=== PATIENT | female | born 1965 | race Two or more races ===

== ENCOUNTER 2018-09-18 14:20 | Inpatient (IN) | payer OTHER, MEDICAID ==
[~2018-09-18] VITALS: Ht 152.4 cm; Wt 83.0 kg
[2018-09-18] MEDS ORDERED: SODIUM CHLORIDE 0.9% 1,000 ML IV ONE ×2 (14:45→17:00)
[2018-09-18] MEDS ORDERED: ONDANSETRON HCL 4 MG/2 ML VIAL IV ONE ×3 (14:45→19:15)
[2018-09-18] MEDS ORDERED: HYDROmorphone HCL 2 MG/ML VL IV ONE ×2 (14:45→17:00)
[2018-09-18 15:23] LABS: Hematocrit 23.7 % (36.0-46.0); Mean Corpuscular Hemoglobin 24.3 pg (28.0-32.0); Mean Corpuscular Hgb Conc. 29.5 g/dL (32.0-36.0); Mean Corpuscular Volume 82.6 fL (80.0-100.0); Platelet Count (auto) 404 10^3/uL (140-450); Red Blood Cells 2.87 10^6/uL (4.0-5.20); Red Cell Distribution Width 17.3 % (11.8-14.3); White Blood Cell 17.3 10^3/uL (4.4-10.8)
[2018-09-18 15:32] LABS: Basophils % (manual) 0 (0.0-2.0); Blast Cells 0; Eosinophils % (manual) 0 (0-7); Metamyelocytes % 0; Monocytes % (manual) 0 (0-12); Myelocytes % 0; Promyelocytes % 0; Reactive Lymphocytes 0
[2018-09-18 15:34] LABS: Potassium 3.3 mmol/L (3.5-5.1)
[2018-09-18 15:44] LABS: Albumin 2.6 g/dL (3.4-5.0); BUN/Creatinine Ratio 18.4; Bilirubin, Total 6.2 mg/dL (0.2-1.0); Calcium 8.5 mg/dL (8.5-10.1); Total Protein 6.8 g/dL (6.4-8.2)
[2018-09-18] MEDS ORDERED: LORazepam 2MG/ML-1ML VIAL ONE (15:56)
[2018-09-18] MEDS ORDERED: LORazepam 2MG/ML-1ML VIAL IV ONE (16:00)
[2018-09-18 16:02] LABS: Lactic Acid w/Reflex 5.5 mmol/L (0.4-2.0)
[2018-09-18 16:10] LABS: Band Neutrophils % (manual) 2; Lymphocytes % (manual) 2 (10.0-50.0)
[2018-09-18] MEDS ORDERED: VANCOMYCIN 1GM/250ML 250 ML IV ONE (17:00)
[2018-09-18] MEDS: cefTRIAXone 1GM/50ML D5W 50 ML IV ONE ×2 (17:35→17:50)
[2018-09-18] MEDS ORDERED: MORPHINE SULFATE 4 MG/ML SYR/VIAL IV ONE (19:15)
[2018-09-18] MEDS ORDERED: SUCCINYLCHOLINE CHLORIDE 20 MG/ML 10ML VIAL IV ONE (19:15)
[2018-09-18] MEDS ORDERED: ETOMIDATE (2MG/ML) 20ML VIAL IV ONE (19:15)
[2018-09-18 19:36] LABS: Urine Bacteria NONE SEEN /hpf (None Seen); Urine Blood 1+ /uL (Negative); Urine Mucus FEW (None Seen); Urine Specific Gravity 1.022 (1.001-1.035); Urine WBC 2 /hpf (0 - 5)
[2018-09-18 19:44] LABS: INR 1.18 (0.9-1.15); Partial Thromboplastin Time 27.3 sec (23.78-33.04); Prothrombin Time 12.5 sec (9.27-12.13)
[2018-09-18] MEDS: MIDAZOLAM DRIP 50 mg/50mL 50 ML IV SCH ×2 (19:57→21:26)
[2018-09-18] MEDS ORDERED: fentaNYL Drip 2500mCg/250mlNS 250 ML IV ONE (21:38)
[2018-09-18] MEDS: fentaNYL Drip 2500mCg/250mlNS 250 ML IV SCH ×2 (21:56→22:56)
[2018-09-18] MEDS ORDERED: LORazepam 2MG/ML-1ML VIAL IV PRN (23:15)
[2018-09-18] MEDS ORDERED: MORPHINE SULF INJ 2 MG/ML SYRINGE 1ML IV PRN (23:15)
[2018-09-18 23:51] VITALS: BP 124/56
[2018-09-19 00:15] VITALS: BP 51/18
[2018-09-19 01:08] VITALS: BP 124/56
== END 2018-09-19 01:07 | disposition expired | DRG 871 ==
LOC: EDBD 14:20 → ER 14:25 → TELE 23:11
PROVIDERS: ADMIT Nurse Practitioner Family; ATTEND Nurse Practitioner Family
DX: A41.9 Sepsis, unspecified organism (principal); K63.1 Perforation of intestine (nontraumatic); C56.9 Malignant neoplasm of unspecified ovary; C79.89 Secondary malignant neoplasm of other specified sites; D64.9 Anemia, unspecified; R06.03 Acute respiratory distress; E87.6 Hypokalemia; K72.90 Hepatic failure, unspecified without coma; E86.0 Dehydration; N28.9 Disorder of kidney and ureter, unspecified; Z51.5 Encounter for palliative care; Z66 Do not resuscitate; Z85.43 Personal history of malignant neoplasm of ovary; Z92.21 Personal history of antineoplastic chemotherapy; Z88.8 Allergy status to other drugs, medicaments and biological substances
CPT/HCPCS: 31500; 36415; 36600; 51702; 71045; 74176; 80053; 81001; 82805; 83605; 83690; 83735; 84484; 85007; 85027; 85610; 85730; 86850; 86900; 86901; 86922; 87040; 87070; 87076; 87077; 87186; 87205; 93005; 94002; 96365; 96368; 96375; 96376; 99291; G0378; J0330; J0696; J2250; J2405